=== PATIENT | female | born 1960 | race Caucasian/White ===

== ENCOUNTER → 2016-10-24 10:50 | Outpatient (CLI) | payer MEDICAID ==
[2016-02-07 13:10] VITALS: BMI 28.2
[~2016-10-24 10:50] MED LIST: DILAUDID2 MG PO; FLOVENT HFA 11012 GM INH; HYDROCODONE-APA1 TAB PO; LOPRESSOR25 MG PO; PRINIVIL20 MG PO; VENTOLIN HFA18 GM INH
== END | disposition home or self-care (01) ==
LOC: D.RAD 10:50
DX: R76.11 Nonspecific reaction to tuberculin skin test without active tuberculosis (principal)

== ENCOUNTER 2016-10-30 15:36 | Emergency (ER) | payer MEDICAID ==
[2016-02-07 13:10] VITALS: BMI 28.2
== END 2016-10-30 17:30 | disposition home or self-care (01) ==
LOC: D.ER 15:36
DX: S20.212A Contusion of left front wall of thorax, initial encounter (principal); W19.XXXA Unspecified fall, initial encounter; Y93.89 Activity, other specified; Y92.018 Other place in single-family (private) house as the place of occurrence of the external cause

== ENCOUNTER 2018-01-11 18:55 | Emergency (ER) | payer MEDICAID ==
[2016-02-07 13:10] VITALS: BMI 28.2
== END 2018-01-11 21:57 | disposition home or self-care (01) ==
LOC: D.ER 18:55
DX: M16.12 Unilateral primary osteoarthritis, left hip (principal); S73.102A Unspecified sprain of left hip, initial encounter; W19.XXXA Unspecified fall, initial encounter; Y93.89 Activity, other specified; Y92.019 Unspecified place in single-family (private) house as the place of occurrence of the external cause; I10 Essential (primary) hypertension; J44.9 Chronic obstructive pulmonary disease, unspecified; F17.200 Nicotine dependence, unspecified, uncomplicated

== ENCOUNTER → 2018-08-26 16:49 | Outpatient (CLI) | payer MEDICAID ==
[2016-02-07 13:10] VITALS: BMI 28.2
== END | disposition home or self-care (01) ==
LOC: D.MAMMO 08-25 08:00
DX: Z12.31 Encounter for screening mammogram for malignant neoplasm of breast (principal)